=== PATIENT | female | born 1990 | race Two or more races ===

== ENCOUNTER 2025-04-15 20:01 | Emergency (ER) | payer SELFPAY ==
[2025-04-15 20:06] VITALS: BP 136/78; PULSE 100; RESP 18; TEMP 37.7; O2SAT 98
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
[2025-04-15 20:16] VITALS: PULSE 75; RESP 18; O2SAT 99; BMI 26.6
[2025-04-15 20:37] LABS: Collection Type, Urine Clean Catch
[2025-04-15 20:49] LABS: HCG Qualitative,Urine Negative
[2025-04-15 21:26] LABS: Bilirubin,Urine Negative (Negative); Blood,Urine Negative (Negative); Clarity,Urine Turbid (Clear/Hazy); Color,Urine Yellow (Lt Yel-Yel); Glucose, Urine Negative (Negative); Ketones,Urine Negative (Negative); Leukocyte Esterase,Urine Negative (Negative); Nitrite,Urine Negative (Negative); PH,Urine 7.5 (5.0-7.0); Protein,Urine 1+ (Neg - Trace); RBC,Urine 1 /hpf (0-3); Specific Gravity,Urine 1.032 (1.001-1.035); Squamous Epithelial Cell,Urine 27 /hpf (0-5); Urobilinogen,Urine 2.0 mg/dL (0.0-1.0); WBC,Urine 4 /hpf (0-5)
--- NOTE | 2025-04-15 21:41 | PC.NURSE ---
Per Phlebo pt refusing meds, several attempts were made.
[2025-04-15 22:14] LABS: Amphetamine/Methamp Scrn,U Negative (Negative); Barbiturate Screen,Urine Negative (Negative); Benzodiazepines Screen,Urine Negative (Negative); Benzoylecgonine Screen, Ur Negative (Negative); Fentanyl Screen,Urine Negative (Negative); Opiate Screen,Urine Negative (Negative); THC Screen,Urine Negative (Negative)
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
--- NOTE | 2025-04-15 22:35 | PC.NURSE ---
PT REFUSED TO ANSWER ALL QUESTIONS THIS RN HAD. PT DENIED TO DO THE [place] SUICIDE SCALE. PT DENIED TO ANSWER ANY PAST MEDICAL HISTORY
--- NOTE | 2025-04-15 22:36 | PC.NURSE ---
PT DENIED TO HAVE ANY VISTORS
--- NOTE | 2025-04-15 23:02 | EDNOTE_ITS ---
Emergency Room Addendum <Jo-Ann Steven - Last Filed: 04/16/25 01:22> Addendum Narrative: I took over the care from previous shift physician, Conner Marin NP, at 11 PM on 04/15/25. See previous notes for complete H & P and ED course. Pending evaluation by our ED Pit Shovel Operator in the morning. The patient remained stable during my watch. At 6 AM on 04/16/2025, the care of the patient was transferred to Dr. Holloway. Deandre Barrios MD <Deandre Barrios MD - Last Filed: 04/16/25 02:25> Addendum Narrative: I took over the care from Conner Marin NP at 11 PM on 04/15/25. See previous notes for complete H & P and ED course. Pending evaluation by our ED Pit Shovel Operator in the morning. Patient continued to decline blood draw for diagnostic tests. At 6 AM on 04/16/2025, the care of the patient was transferred to Dr. Holloway. During my watch, the patient remained stable. Deandre Barrios MD
--- NOTE | 2025-04-15 23:12 | PC.NURSE ---
PT REFUSED BLOOD DRAW
--- NOTE | 2025-04-15 23:12 | PC.NURSE ---
PT REFUSED BLOOD DRAW, PROVIDER NOTIFIED
--- NOTE | 2025-04-16 07:01 | PC.NURSE ---
PT REFUSED VITAL SIGNS. PT STATES I JUST WANT TO SLEEP
--- NOTE | 2025-04-16 07:13 | PC.NURSE ---
Received report from Mary CHIN and assumed care of patient. Patient sleeping in bed with no signs of distress.
--- NOTE | 2025-04-16 07:19 | EDNOTE_ITS ---
Emergency Room Addendum Addendum Narrative: 0600: Care assumed from Dr. Barrios, the previous shift emergency physician. Past medical, surgical, social and family history reviewed. Vitals and home medications reviewed. I will assume the care of the patient at this time, pending medical clearance for mental health evaluation. Please refer to the emergency department record for history and examination from initial visit.?The following addendum documentation note is intended to reflect any pending information, findings, or radiology results not included in the patient?s initial chart. 1125: Notified by social work assistant that the 5150 was upheld and pending placement at this time. Patient has been accepted for transfer by Dr. Nicolas at [facility]. EMS p/u 19:00.
--- NOTE | 2025-04-16 08:11 | PC.NURSE ---
Patient awake. Offered breakfast tray, but asked for water only. Refused vital signs being taken.
--- NOTE | 2025-04-16 08:12 | PC.NURSE ---
Patient appears to be in no distress while laying in bed.
--- NOTE | 2025-04-16 09:51 | PC.SS ---
- contacted family and spoke to Jeanie Danielle. Jeanie confirmed she is patient's sister. Patient earlier, had stated this was her mom. Jeanie confirmed that patient resides in [place]. Patient called her parents and was not making any sense on the phone. Patient was saying that her apartment smells like gas and complaining that someone was doing witchcraft on her and her house was possessed. Patient had verbalized to family that she wanted to call to say goodbye to them. Family states they could tell she was not in her right mind. Patient drove from [place] to her parents home where she was getting verbally aggressive and talking wildly with her hands everywhere. At one point family states patient was in a catatonic state in her bed for hours. When she woke up she was being combative and verbally aggressive with family. Patient's sister, Jeanie, states they are used to her sister acting like this. Jeanie states patient has a history of being on a hold in [place] of last year and recently in [place] patient was lost and deemed missing and was placed on a hold. Sister states patient has not been officially diagnosed with Schizophrenia as far as she knows and patient does not take any medications. History of delusions per family. Contact: Jeanie Danielle, sister, Judson, mother,
--- NOTE | 2025-04-16 14:23 | PC.CC ---
Addendum entered by Yin Moses 04/16/25 16:27: 1627-Pt accepted to [facility]. Accepting is Dr. Nicolas, Pt will go to [address]. Accepting Intake Coord is Campos [phone]. Addendum entered by Yin Moses 04/16/25 16:15: Pt accepted to [facility]. ASW will arrange transportation. [facility] would like pt to arrive at 1999. Addendum entered by Yin Moses 04/16/25 15:16: ASW submitted the pts packet to [facility] and the following facilities have placed the pt on Q: [facility] Original Note: ASW submitted the pts packet to [facility] and the following facilities have declined: [facility]
[2025-04-16 16:10] VITALS: BP 111/74; PULSE 75; RESP 18; TEMP 36.8; O2SAT 95
--- NOTE | 2025-04-16 19:26 | PC.NURSE ---
Report called and given to Lonnie CHIN at [facility]
--- NOTE | 2025-04-17 16:49 | PC.SS ---
PHOTOTYPESETTER OPERATOR confirmed with patient's sister, Jeanie; that patient was accepted for placement at [facility].
== END 2025-04-16 19:43 | disposition short-term general hospital (02) ==
PROVIDERS: Registered Nurse General Practice; Emergency Provider Emergency Medicine
DX: Z04.6 Encounter for general psychiatric examination, requested by authority (principal); F23 Brief psychotic disorder; Z91.148 Patient's other noncompliance with medication regimen for other reason; Z75.1 Person awaiting admission to adequate facility elsewhere
CPT/HCPCS: 80053; 80307; 80320; 80329; 81001; 81025; 82248; 83735; 85025; 96127; 99283; G0480